=== PATIENT | male | born 2005 | race Two or more races ===

== ENCOUNTER 2023-11-21 21:19 | Emergency (ER) | payer BC ==
[~2023-11-21] VITALS: Ht 180.3 cm; Wt 61.2 kg
[2023-11-21 23:40] LABS: *BILIRUBIN,URIN NEGATIVE (NEGATIVE); *BLOOD, URINE NEGATIVE (NEGATIVE); *CLARITY,URINE CLEAR (CLEAR); *COLOR,URINE YELLOW (YELLOW); *KETONES,URINE NEGATIVE (NEGATIVE); *PROTEIN,URINE NEGATIVE (NEGATIVE); *UROBILINOGEN,URINE 0.2 E.U./dl (NORMAL); LEUKOCYTE ESTERASE ,URINE NEGATIVE (NEGATIVE); NITRITE, URINE NEGATIVE (NEGATIVE); UGLUCOSE NEGATIVE (NEGATIVE)
[2023-11-22] MEDS ORDERED: ONDA4TAB11 PO (00:11)
[2023-11-22] MEDS ORDERED: HYDR-4209 PO (00:11)
[2023-11-22 00:24] VITALS: BP 130/55; O2SAT 98
== END 2023-11-22 00:25 | disposition home or self-care (01) ==
LOC: ER 21:22
DX: R10.9 Unspecified abdominal pain (principal); J45.909 Unspecified asthma, uncomplicated; F17.200 Nicotine dependence, unspecified, uncomplicated
CPT/HCPCS: 71045; 93005; A4606; A4663